=== PATIENT | female | born 1940 | race Caucasian/White ===

== ENCOUNTER 2022-12-09 14:31 | Outpatient (AMB) | payer OTHER, SELFPAY ==
--- NOTE | 2022-12-09 14:33 | AM.OFFWIN_ITS ---
Intake Vital Signs 12/09/22 14:34 Height 5 ft 3 in BP 142/70 H Blood Pressure Location Rt brachial Position Sitting Pulse 61 Pulse Source Pulse Oximeter Temp 96.4 F L Temp Source Temporal Artery Scan Pulse Oximetry (%) 97 Oxygen Delivery Method Room Air Intake Visit Reasons: [employer], Insect Bites in both legs Intake Note: Pt is here c/o hornet bites on both legs. Patient Tobacco Use Status: Never used Tobacco Allergies No Known Allergies Allergy (Verified 12/09/22 14:34) Do you need a note to return to daycare/school/sports/work: No HPI HPI Comments History of Present Illness Details This is an 82-year-old female who presents to the office today for a sick visit. She states she was stung by 3 hornets on her left ankle about 1 week ago. She states the area is erythematous, swollen, and pruritic. She denies any fevers or chills. She denies any chest pain or shortness of breath. She denies any difficulty swallowing or difficulty breathing. She denies any throat swelling. [facility] Social History Patient Tobacco Use Status: Never used Tobacco Review of Systems Const All systems reviewed & are unremarkable except as noted in HPI and below Eyes Reports no additional complaints ENT Reports no additional complaints Card Reports no additional complaints Resp Reports no additional complaints GI Reports no additional complaints Reports no additional complaints Musc Reports no additional complaints Skin/Breast Reports system reviewed and no additional complaints, except as documented and Reports change in pigmentation Neuro Reports no additional complaints Psych Reports no additional complaints Endo Reports no additional complaints Kenneth/Lymph Reports no additional complaints Aller/Immun Reports no additional complaints Physical Exam Vital Signs: Last Vital Signs Temp 96.4 F L 12/09/22 14:34 Pulse 61 12/09/22 14:34 BP 142/70 H 12/09/22 14:34 Pulse Ox 97 12/09/22 14:34 Oxygen Delivery Method Room Air 12/09/22 14:34 Const General: cooperative, healthy appearing, comfortable, no acute distress, well developed, alert and awake Orientation/consciousness: patient oriented x3 HEENT Head: Yes normal to inspection Ears: hearing grossly normal bilaterally General nose exam: Normal external nose present Face and sinus: Yes normal facial exam Eyes General: appearance normal, both eyes and all related structures Pupils: Equal, round and reactive pupils present EOM: EOMs intact bilaterally Resp Effort & Inspection: normal respiratory effort Auscultation: clear to auscultation bilaterally, no crackles, no rales, no rhonchi and no wheezes Cardio Rate: regular rate Rhythm: regular rhythm Heart sounds: no gallops, no murmurs and no rubs Skin Other: Circumferential erythema of the left and ankle without purulence drainage or fluctuance/induration or lymphangitic streaking. Neuro General: patient oriented x3 Cranial nerves: Yes CN's II-XII intact bilaterally and Yes Equal, round and reactive pupils present Gait exam (Neuro): Normal gait present Motor exam (neuro): 5/5 motor strength present throughout Assessment & Plan Assessment & Plan (1) Cellulitis and abscess of left lower extremity: Code(s): L03.116 - Cellulitis of left lower limb; L02.416 - Cutaneous abscess of left lower limb Plan: This is an 82-year-old female who presents to the office today with left lower extremity swelling and erythema. History and physical most consistent with cellulitis of the left lower extremity. No evidence of abscess or lymphangitis streaking. No fever/chills or systemic symptoms. Patient overall nontoxic appearing. Patient sent home on p.o. cephalexin 500 mg 4 times daily x7 days. Patient advised to follow-up here go to the emergency room for persistent or worsening symptoms or fever/chills. Medications: New cephalexin 500 mg PO QID 28 caps 0RF Coding Level of Care Code New Pt Level 3 (44516) Diagnoses Cellulitis and abscess of left lower extremity L03.116; L02.416
[2022-12-09 14:34] VITALS: BP 142/70; PULSE 61; TEMP 35.8; O2SAT 97
== END 2022-12-09 14:59 | disposition home or self-care (01) ==
PROVIDERS: PCP Nurse Practitioner Pediatrics; Visit Provider Physician Assistant Medical
DX: L03.116 Cellulitis of left lower limb (principal); L02.416 Cutaneous abscess of left lower limb
CPT/HCPCS: 99203